=== PATIENT | male | born 1970 | race Caucasian/White ===

== ENCOUNTER 2022-09-13 11:21 | Outpatient (CLI) | payer OTHER | END 2022-09-13 11:22 | disposition home or self-care (01) | LOC: NAV RAD 11:21 | PROVIDERS: ATTEND Family Medicine | DX: J44.9 Chronic obstructive pulmonary disease, unspecified (principal); M48.02 Spinal stenosis, cervical region; M47.812 Spondylosis without myelopathy or radiculopathy, cervical region; M17.11 Unilateral primary osteoarthritis, right knee; M25.861 Other specified joint disorders, right knee | CPT/HCPCS: 71046; 72040 ==